=== PATIENT | male | born 1965 | race Hispanic/Latino ===

== ENCOUNTER 2019-12-30 14:55 | Inpatient (IN) | payer BC, SELFPAY ==
[~2019-12-30] VITALS: Ht 182.9 cm; Wt 142.2 kg
[2019-12-30] MEDS ORDERED: PIPER-TAZ 3.375 GM 50 ML IV STA (15:03)
[2019-12-30] MEDS ORDERED: SODIUM CHLORIDE 0.9% 1000ML 1,000 ML IV STA (15:03)
[2019-12-30] MEDS ORDERED: VANCOMYCIN 1GM/NS 250 ML 250 ML IV STA (15:03)
--- NOTE | 2019-12-30 15:07 | Emergency Department Note ---
History of Present Illnes History of Present Illness Chief Complaint: General Medicine Complaints History of Present Illness This is a 54 year old male . c/o r lower leg swelling redness x5 days Historian: Patient Arrival Mode: Car Onset (how long ago): day(s) (5 days) Radiation: non-radiation, back, neck, extremity, abdomen, periumbilical, flank, proximal, distal, other Severity: mild Onset quality: gradual Duration (how long): day(s) (5 days) Context: recent illness, recent surgery, recent immobilization, recent travel, trauma/injury, new medications, hx of DVT/PE, non-compliance w/ medications, other Relieving factors: none Exacerbating factors: none Treatments prior to arrival: none (MIGUELITO ALVES NP) Past Medical/Family History Physician Review I have reviewed the patient's past medical and family history. Any updates have been documented here. (MIGUELITO ALVES NP) Past Medical History Clinical Suspicion of Infectio: Yes Past Medical History: None Other Surgery: hernia (MIGUELITO ALVES NP) Social History Smoking Cessation: Never Smoker Alcohol Use: None Any Illegal Drug Use: No TB Exposure/Symptoms: No (MIGUELITO ALVES NP) Other Any Pre-Existing Lines (PICC,: No (MIGUELITO ALVES NP) Review of Systems Review of Systems Constitutional: no symptoms EENTM: no symptoms Cardiovascular: no symptoms, as per HPI, chest pain, edema, palpitations, syncope, other Respiratory: no symptoms Gastrointestinal: no symptoms Genitourinary: no symptoms Musculoskeletal: other (c/o r ;lower leg discomfort swelling redness -); no symptoms, as per HPI, back pain, gout, joint pain, joint swelling, muscle pain, muscle stiffness, neck pain Neurological: no symptoms Psychological: no symptoms Endocrine: no symptoms Hematological/Lymphatic: no symptoms Review of other systems All other systems reviewed and negative. (MIGUELITO ALVES NP) Physical Exam Related Data Allergies: Coded Allergies: No Known Allergies (Verified , 01/11/10) Triage Vital Signs Vital Signs Date Time Temp Pulse Resp B/P (MAP) Pulse Ox O2 Delivery O2 Flow Rate FiO2 12/30/19 15:04 98.0 73 20 157/88 96 Vital signs reviewed: Yes (MIGUELITO ALVES NP) Physical Exam CONSTITUTIONAL Constitutional: well-developed, well-nourished HENT HENT: normocephalic, atraumatic, oropharynx clear/moist, nose normal HENT L/R: left ext ear normal, right ext ear normal EYES Eyes: PERRL, conjunctivae normal NECK Neck: ROM normal PULMONARY Pulmonary: effort normal, breath sounds normal CARDIOVASCULAR Cardiovascular: regular rhythm, heart sounds normal, capillary refill normal, normal rate GASTROINTESTINAL Abdominal: soft, nontender, bowel sounds normal GENITOURINARY Genitourinary: exam deferred SKIN Skin: other (noted redness swelling to r lower leg - exam c/w cellulitis ) MUSCULOSKELETAL Musculoskeletal: tenderness (r leg), swelling (r leg) NEUROLOGICAL Neurological: alert, oriented x 3, no gross motor or sensory deficits PSYCHOLOGICAL Psychological: mood/affect normal, judgement normal (MIGUELITO ALVES NP) Results Laboratory Laboratory Laboratory Tests Test 12/30/19 16:15 White Blood Count 6.93 x10e3/uL (4.8-10.8) Red Blood Count 4.60 x10e6/uL (4.3-5.7) Hemoglobin 14.3 g/dL (14.0-18.0) Hematocrit 42.4 % (38.2-49.6) Mean Corpuscular Volume 92.2 fL (81-99) Mean Corpuscular Hemoglobin 31.1 pg (28-32) Mean Corpuscular Hemoglobin Concent 33.7 g/dL (31-35) Red Cell Distribution Width 13.0 % (11.7-14.4) Platelet Count 192 x10e3/uL (140-360) Neutrophils (%) (Auto) 69.3 % (38.7-80.0) Lymphocytes (%) (Auto) 16.9 % (18.0-39.1) Monocytes (%) (Auto) 7.5 % (4.4-11.3) Eosinophils (%) (Auto) 4.3 % (0.0-6.0) Basophils (%) (Auto) 0.7 % (0.0-1.0) Neutrophils # (Auto) 4.8 (2.1-6.9) Lymphocytes # (Auto) 1.2 (1.0-3.2) Monocytes # (Auto) 0.5 (0.2-0.8) Eosinophils # (Auto) 0.3 (0.0-0.4) Basophils # (Auto) 0.1 (0.0-0.1) Absolute Immature Granulocyte (auto 0.09 x10e3/uL (0-0.1) Sodium Level 141 mmol/L (136-145) Potassium Level 4.3 mmol/L (3.5-5.1) Chloride Level 104 mmol/L (98-107) Carbon Dioxide Level 27 mmol/L (22-29) Anion Gap 14.3 mmol/L (8-16) Blood Urea Nitrogen 10 mg/dL (7-26) Creatinine 0.92 mg/dL (0.72-1.25) Estimat Glomerular Filtration Rate > 60 ML/MIN (60-) BUN/Creatinine Ratio 11 (6-25) Glucose Level 156 mg/dL (74-118) Lactic Acid Level 1.6 mmol/L (0.5-2.0) Calcium Level 9.2 mg/dL (8.4-10.2) Total Bilirubin 0.7 mg/dL (0.2-1.2) Aspartate Amino Transf (AST/SGOT) 35 IU/L (5-34) Alanine Aminotransferase (ALT/SGPT) 57 IU/L (0-55) Alkaline Phosphatase 97 IU/L (40-150) Total Protein 7.2 g/dL (6.5-8.1) Albumin 3.3 g/dL (3.5-5.0) Globulin 3.9 g/dL (2.3-3.5) Albumin/Globulin Ratio 0.8 (0.8-2.0) Lab results reviewed: Yes (MIGUELITO ALVES SURGICAL LEAD) Assessment & Plan Reassessment Reassessment 54 y m presented ot ed c/o right lower leg swelling redness x [address] Diaz in eval pt status - lab lactic blood cultures us lower leg ordered - pt medicated w/ vanc zosyn (MIGUELITO ALVES SURGICAL LEAD) Assessment & Plan Final Impression: (1) Cellulitis of right leg Assessment & Plan Dr Diaz in re eval pt status discussed plan of care and need for admit Dr Diaz spoke w/ Dr Gabriele Pal will admit (MIGUELITO ALVES SURGICAL LEAD) Depart Disposition: ADMITTED Physician Attestation Provider Attestation Pt seen and examined with drum barker operator, pt presents for RLE swelling/pain x 5 days progr essive Exam as follows - marked swelling of RLE below knee to foot with erythema/incr warmth I agree with drum barker operator assessment and disposition. (LEEANNE DIAZ MD) MIGUELITO ALVES SURGICAL LEAD December 30, 2019 15:07 LEEANNE DIAZ MD December 30, 2019 18:00
[2019-12-30 16:41] LABS: BASOPHILS # (AUTO) 0.1 (0.0-0.1); BASOPHILS % 0.7 % (0.0-1.0); EOSINOPHILS # (AUTO) 0.3 (0.0-0.4); EOSINOPHILS % 4.3 % (0.0-6.0); HEMATOCRIT 42.4 % (38.2-49.6); HEMOGLOBIN 14.3 g/dL (14.0-18.0); LYMPHOCYTES # (AUTO) 1.2 (1.0-3.2); LYMPHOCYTES % 16.9 % (18.0-39.1); MEAN CORPUSCULAR HEMOGLOBIN 31.1 pg (28-32); MEAN CORPUSCULAR HGB CONC 33.7 g/dL (31-35); MEAN CORPUSCULAR VOLUME 92.2 fL (81-99); MONOCYTES # (AUTO) 0.5 (0.2-0.8); MONOCYTES % 7.5 % (4.4-11.3); NEUTROPHILS # (AUTO) 4.8 (2.1-6.9); NEUTROPHILS % 69.3 % (38.7-80.0); PLATELET COUNT 192 x10e3/uL (140-360)
[2019-12-30] MEDS ORDERED: MORPHINE SULFATE 2 MG/ML SYR 1ML IV PRN (17:00)
[2019-12-30] MEDS ORDERED: ONDANSETRON HCL INJ 2MG/ML 2ML 2 MG/ML VIAL IV PRN (17:00)
[2019-12-30 17:01] LABS: ALANINE AMINOTRANSFERASE 57 IU/L (0-55); ALBUMIN 3.3 g/dL (3.5-5.0); ALBUMIN/GLOBULIN RATIO 0.8 (0.8-2.0); ALKALINE PHOSPHATASE 97 IU/L (40-150); ANION GAP 14.3 mmol/L (8-16); BLOOD UREA NITROGEN 10 mg/dL (7-26); BUN/CREATININE RATIO 11 (6-25); CALCIUM 9.2 mg/dL (8.4-10.2); CARBON DIOXIDE 27 mmol/L (22-29); CHLORIDE 104 mmol/L (98-107); CREATININE, SERUM 0.92 mg/dL (0.72-1.25); EST GLOMERULAR FILTRATION RATE > 60 ML/MIN (60-); GLUCOSE 156 mg/dL (74-118); POTASSIUM 4.3 mmol/L (3.5-5.1); SODIUM 141 mmol/L (136-145)
[2019-12-30 17:45] VITALS: BP 117/63
--- NOTE | 2019-12-30 17:48 | NUR ---
ATTEMPTED TO CALL REPORT, NURSE WITH MD. REQUEST CALL BACK IN 10-15 MIN
--- NOTE | 2019-12-30 18:03 | NUR ---
NURSING REPORT GIVEN TO ALEX ALMODOVAR.
--- OUTSIDE RECORDS SUMMARY | 2019-12-30 18:08 | XMS REPORT ---
Author Author [facility] Address [address] [place] [address] Phone Unavailable Care Team Providers Care Customer Strategy Manager Name Role Phone Unavailable Unavailable Payers Payer Name Policy Type Policy Number Effective Date Expiration Date S ource Problems This patient has no known problems. Allergies, Adverse Reactions, Alerts Allergy Name Allergy Type Status Severity Reaction(s) Onset Date Inacti ve Date Treating Clinician Comments Source No Known Allergies DA Active U 2019-12-29 00:00:00 [facility] No Known Drug Intolerances DA Active U 2009-02-04 00:00:0 0 [facility] No Known Intolerances DA Active U 2009-02-04 00:00:00 [facility] Medications This patient has no known medications. Procedures This patient has no known procedures. Results This patient has no known results.
--- NOTE | 2019-12-30 19:12 | NUR ---
RECEIVED THE PATIENT IN REPORT.AAOX3.ORIENTED TO THE UNIT.RIGHT LEG IS SWOLLEN AND REDNESS NOTED.BED LOCKED AND IN LOWEST POSITION.PHONE AND CALL LIGHT WITHIN REACH.INSTRUCTED TO CALL FOR ASSISTANCE NEEDED.BITUMASTIC APPLIER IS AWARE OF THE VENOUS DOPPLER STUDY.
[2019-12-30 19:40] VITALS: BP 123/71
--- NOTE | 2019-12-30 20:10 | NUR ---
Admission assessment done.iv to right ac #[id number] is patent.no pain voiced.no resp.distress.provided snacks.keep monitor the patient.
[2019-12-30 20:33] VITALS: BP 134/80
[2019-12-30 21:00] VITALS: BP 134/80
[2019-12-30] MEDS: SODIUM CHLORIDE 0.9% 1000ML 1,000 ML IV SCH (21:01)
[2019-12-30 23:28] VITALS: BP 119/75
[2019-12-31] VITALS (7 sets, daily range): BP systolic 124–145; BP diastolic 67–84
--- NOTE | 2019-12-31 00:39 | NUR ---
Patient is resting in the bed.patient stated no home med list.
[2019-12-31] MEDS: SODIUM CHLORIDE 0.9% 1000ML 1,000 ML IV SCH ×2 (03:00→13:46)
[2019-12-31 05:30] LABS: BASOPHILS # (AUTO) 0.1 (0.0-0.1); BASOPHILS % 0.7 % (0.0-1.0); EOSINOPHILS # (AUTO) 0.4 (0.0-0.4); EOSINOPHILS % 5.2 % (0.0-6.0); HEMATOCRIT 41.8 % (38.2-49.6); HEMOGLOBIN 13.8 g/dL (14.0-18.0); LYMPHOCYTES # (AUTO) 1.6 (1.0-3.2); LYMPHOCYTES % 21.3 % (18.0-39.1); MEAN CORPUSCULAR HEMOGLOBIN 30.6 pg (28-32); MEAN CORPUSCULAR VOLUME 92.7 fL (81-99); MONOCYTES # (AUTO) 0.4 (0.2-0.8); NEUTROPHILS # (AUTO) 4.8 (2.1-6.9); NEUTROPHILS % 65.6 % (38.7-80.0); PLATELET COUNT 190 x10e3/uL (140-360); RED BLOOD COUNT 4.51 x10e6/uL (4.3-5.7); RED CELL DISTRIBUTION WIDTH 13.1 % (11.7-14.4)
[2019-12-31 05:51] LABS: ALANINE AMINOTRANSFERASE 54 IU/L (0-55); ALBUMIN/GLOBULIN RATIO 0.8 (0.8-2.0); ALKALINE PHOSPHATASE 92 IU/L (40-150); ANION GAP 12.1 mmol/L (8-16); BLOOD UREA NITROGEN 9 mg/dL (7-26); BUN/CREATININE RATIO 11 (6-25); CALCIUM 8.8 mg/dL (8.4-10.2); CARBON DIOXIDE 23 mmol/L (22-29); CHLORIDE 108 mmol/L (98-107); CREATININE, SERUM 0.83 mg/dL (0.72-1.25); EST GLOMERULAR FILTRATION RATE > 60 ML/MIN (60-); GLUCOSE 137 mg/dL (74-118); POTASSIUM 4.1 mmol/L (3.5-5.1); SODIUM 139 mmol/L (136-145)
--- NOTE | 2019-12-31 06:58 | NUR ---
Bed side shift report given to oncoming RN.stable condition.
[2019-12-31] MEDS: VANCOMYCIN 1GM/NS 250 ML 250 ML IV SCH (15:21)
[2019-12-31] MEDS: PIPER-TAZ 3.375 GM 50 ML IV SCH (17:56)
[2020-01-01] VITALS (8 sets, daily range): BP systolic 121–150; BP diastolic 78–86
[2020-01-01] MEDS: SODIUM CHLORIDE 0.9% 1000ML 1,000 ML IV SCH ×3 (00:06→19:00)
[2020-01-01] MEDS: PIPER-TAZ 3.375 GM 50 ML IV SCH ×4 (00:06→17:27)
[2020-01-01] MEDS: VANCOMYCIN 1GM/NS 250 ML 250 ML IV SCH ×2 (03:13→16:31)
[2020-01-01 05:13] LABS: BASOPHILS % 0.6 % (0.0-1.0); EOSINOPHILS # (AUTO) 0.4 (0.0-0.4); HEMATOCRIT 41.3 % (38.2-49.6); HEMOGLOBIN 13.9 g/dL (14.0-18.0); LYMPHOCYTES # (AUTO) 1.6 (1.0-3.2); LYMPHOCYTES % 23.4 % (18.0-39.1); MEAN CORPUSCULAR HEMOGLOBIN 30.8 pg (28-32); MEAN CORPUSCULAR HGB CONC 33.7 g/dL (31-35); MEAN CORPUSCULAR VOLUME 91.6 fL (81-99); MONOCYTES # (AUTO) 0.4 (0.2-0.8); NEUTROPHILS # (AUTO) 4.3 (2.1-6.9); NEUTROPHILS % 62.5 % (38.7-80.0); PLATELET COUNT 181 x10e3/uL (140-360); RED BLOOD COUNT 4.51 x10e6/uL (4.3-5.7); RED CELL DISTRIBUTION WIDTH 12.8 % (11.7-14.4)
[2020-01-01 05:23] LABS: ANION GAP 12.1 mmol/L (8-16); BLOOD UREA NITROGEN 8 mg/dL (7-26); BUN/CREATININE RATIO 9 (6-25); CALCIUM 8.5 mg/dL (8.4-10.2); CARBON DIOXIDE 24 mmol/L (22-29); CHLORIDE 105 mmol/L (98-107); CREATININE, SERUM 0.94 mg/dL (0.72-1.25); EST GLOMERULAR FILTRATION RATE > 60 ML/MIN (60-); GLUCOSE 120 mg/dL (74-118); POTASSIUM 4.1 mmol/L (3.5-5.1); SODIUM 137 mmol/L (136-145)
[2020-01-02] VITALS: BP 120/69
[2020-01-02] MEDS: VANCOMYCIN 1GM/NS 250 ML 250 ML IV SCH ×2 (02:26→14:04)
[2020-01-02] MEDS: SODIUM CHLORIDE 0.9% 1000ML 1,000 ML IV SCH ×2 (02:26→14:04)
[2020-01-02 04:00] VITALS: BP 142/72
[2020-01-02] MEDS: PIPER-TAZ 3.375 GM 50 ML IV SCH ×3 (05:47→11:03)
[2020-01-02 08:39] VITALS: BP 128/76
[2020-01-02 09:00] VITALS: BP 128/76
[2020-01-02 11:58] VITALS: BP 129/78
--- NOTE | 2020-01-02 16:11 | NUR ---
Patient received discharge order from Dr. Gabriele Pal. Patient was given written prescriptions and his and he were explained discharge orders to follow up with their PCP and get his new prescriptions filled upon discharge. Patient and understood all information and had no other questions. Patient's IV was removed at 1545. Patient was walked to the front door, after refusing a wheelchair, with his at 1553.
== END 2020-01-02 15:53 | disposition home or self-care (01) | DRG 603 ==
LOC: ER 14:55 → ERHOLD 16:56 → MED/SURG2 18:16
DX: L03.115 Cellulitis of right lower limb (principal); Z68.41 Body mass index [BMI] 40.0-44.9, adult; B96.7 Clostridium perfringens [C. perfringens] as the cause of diseases classified elsewhere; E66.01 Morbid (severe) obesity due to excess calories; Z11.59 Encounter for screening for other viral diseases
CPT/HCPCS: 36415; 80048; 80053; 80202; 83605; 85025; 87040; 87635; 93971; 96361; 99284; J2543; J3370; J7030

== ENCOUNTER 2021-07-05 21:21 | Emergency (ER) | payer SELFPAY ==
[~2021-07-05] VITALS: Ht 182.9 cm; Wt 142.0 kg
[2021-07-05] MEDS ORDERED: CEFTRIAXONE 1 GM in SODIUM CHLORIDE 0.9% 50ML 50 ML IV ONE (21:45)
[2021-07-05] MEDS ORDERED: ACETAMINOPHEN 325 MG TAB PO ONE (21:45)
[2021-07-05] MEDS ORDERED: SODIUM CHLORIDE 0.9% 1000ML 1,000 ML IV ONE ×2 (21:45→22:30)
[2021-07-05 21:57] LABS: BASOPHILS # (AUTO) 0.1 (0.0-0.1); BASOPHILS % 0.4 % (0.0-1.0); EOSINOPHILS # (AUTO) 0.1 (0.0-0.4); EOSINOPHILS % 0.8 % (0.0-6.0); HEMATOCRIT 41.7 % (38.2-49.6); HEMOGLOBIN 14.4 g/dL (14.0-18.0); LYMPHOCYTES # (AUTO) 0.7 (1.0-3.2); MEAN CORPUSCULAR HEMOGLOBIN 31.5 pg (28-32); MEAN CORPUSCULAR HGB CONC 34.5 g/dL (31-35); MEAN CORPUSCULAR VOLUME 91.2 fL (81-99); MONOCYTES # (AUTO) 0.3 (0.2-0.8); MONOCYTES % 2.1 % (4.4-11.3); NEUTROPHILS # (AUTO) 11.9 (2.1-6.9); NEUTROPHILS % 91.1 % (38.7-80.0); PLATELET COUNT 133 x10e3/uL (140-360); RED BLOOD COUNT 4.57 x10e6/uL (4.3-5.7); RED CELL DISTRIBUTION WIDTH 12.1 % (11.7-14.4)
[2021-07-05 22:15] LABS: ALBUMIN 3.6 g/dL (3.5-5.0); ANION GAP 16.6 mmol/L (8-16); CALCIUM 8.9 mg/dL (8.4-10.2); CREATININE, SERUM 1.12 mg/dL (0.72-1.25); POTASSIUM 3.6 mmol/L (3.5-5.1)
[2021-07-05 22:16] LABS: AMYLASE 58 U/L (25-125); LIPASE 30 U/L (8-78)
[2021-07-05 22:16] LABS: CLARITY,URINE SL CLOUDY (CLEAR); COLOR,URINE AMBER (YELLOW); KETONES,URINE TRACE (NEGATIVE); LEUKOCYTE ESTERASE ,URINE NEGATIVE (NEGATIVE); NITRITE,URINE NEGATIVE (NEGATIVE); PROTEIN,URINE DIPSTICK 1+ (NEGATIVE)
[2021-07-05 22:23] LABS: AMORPHOUS SEDIMENT,URINE FEW (FEW); BACTERIA,URINE FEW /HPF; EPITHELIAL CELLS,URINE FEW /LPF; RBC,URINE 0-5 /HPF (0-5); WBC,URINE (MAN) 0-5 /HPF (0-5)
[2021-07-05] MEDS ORDERED: SODIUM CHLORIDE 0.9% 1000ML 1,000 ML ONE (22:32)
[2021-07-05] MEDS ORDERED: SODIUM CHLORIDE 0.9% 50ML 50 ML ONE (22:43)
[2021-07-05] MEDS ORDERED: IOPAMIDOL 370 MG/ML 200 ML INFUS..BTL INJ ONE (22:43)
[2021-07-06 00:09] VITALS: BP 109/58
== END 2021-07-06 00:27 | disposition home or self-care (01) ==
LOC: ER 21:32
DX: R50.9 Fever, unspecified (principal); B34.9 Viral infection, unspecified; R11.2 Nausea with vomiting, unspecified; Z20.822 Contact with and (suspected) exposure to COVID-19
CPT/HCPCS: 36415; 71045; 74177; 80053; 81001; 82150; 83605; 83690; 85025; 87040; 87071; 87086; 87205; 93005; 99285; J0696; J7030; Q9967; U0002